=== PATIENT | male | born 1975 | race Caucasian/White ===

== ENCOUNTER 2024-03-18 14:33 | Outpatient (AMB) | payer OTHER, SELFPAY ==
--- NOTE | 2024-03-18 14:39 | A.OFFVIS_ITS ---
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 Patient reports that he has had left knee pain for many years now. He has been treated previously with [facility], they have given cortisone injections. Most recent injection was done at the end of november. He has done a home exercise program as as well as taping. He feels pain all the time, but it is worse with increased acitivty. He takes Celebrex for his pain and uses medicinal marijuana. He would like to discuss possible TKA. Hx of Menisectomy of the left knee & Arhtroscopy of the left knee to clear our OA. 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 He states he has had 2 arthroscopic surgeries and was told he has osteoarthritis. He has been treated at an outside institution with injections and comes in today continuing to complain of difficulty with daily activities. His primary problems include pain with kneeling and pain with stairs. 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 [facility] Medical History (Updated 03/19/24 @ 09:29 by Teodoro Barclay MD) Traumatic amputation of right index finger Surgical History (Updated 03/19/24 @ 09:29 by Teodoro Barclay MD) History of gastric bypass (~2003) Hx of cholecystectomy H/O left knee surgery Physical Exam Extrem Other: On exam he has a moderate valgus malalignment with 1+ instability of the left knee. Tenderness to palpation over the lateral compartment. He has 0-130 degrees of motion. No effusion. Office Procedures Joint Injection/Aspiration Joint Injection/Aspiration Details: Injected 1 mL of Decadron and 3 mL 1% lidocaine and 3 mL of 0.25% Marcaine. Site was prepped using aseptic technique. Patient tolerated the procedure well. Primary Site: left knee Approach Used: anterolateral Coding 99660 - Large joint Procedure code (CPT) selection complete Assessment & Plan Assessment & Plan (1) Osteoarthritis of left knee: Code(s): M17.12 - Unilateral primary osteoarthritis, left knee Category: Medical Plan: This is a 48-year-old gentleman with left knee osteoarthritis and valgus malalignment. I injected his left knee. If this is not sufficiently helpful I would recommend gel. I did discuss an unloading brace but he is hesitant to do this. (2) Morbid obesity: Code(s): E66.01 - Morbid (severe) obesity due to excess calories Category: Medical Plan: He has ongoing issues with moderate obesity. (3) History of gastric bypass: Onset Date: ~2003 Code(s): Z98.84 - Bariatric surgery status Category: Surgical Plan: History of gastric bypass 20 years ago. Coding Level of Care Code New Pt Level 4 (92603) Diagnoses Osteoarthritis of left knee M17.12 Morbid obesity E66.01 History of gastric bypass Z98.84 CPT Codes Coding - 79912 Large joint: 14332 - Large joint ([id number])
== END 2024-03-18 15:16 | disposition home or self-care (01) ==
PROVIDERS: PCP Nurse Practitioner Women's Health; Visit Provider Orthopaedic Surgery
DX: M17.12 Unilateral primary osteoarthritis, left knee (principal); E66.01 Morbid (severe) obesity due to excess calories; Z98.84 Bariatric surgery status
CPT/HCPCS: 20610; 99204

== ENCOUNTER → 2024-03-18 14:33 | Outpatient (BNVA) | payer OTHER, SELFPAY | PROVIDERS: PCP Nurse Practitioner Women's Health; Visit Provider Orthopaedic Surgery | DX: M17.12 Unilateral primary osteoarthritis, left knee (principal); E66.01 Morbid (severe) obesity due to excess calories; Z98.84 Bariatric surgery status | CPT/HCPCS: 20610; J0665; J1100 ==

== ENCOUNTER 2024-09-13 11:26 | Outpatient (AMB) | payer OTHER, SELFPAY ==
--- NOTE | 2024-09-13 11:29 | MHC.OFFVIS ---
Vital Signs 09/13/24 11:34 Height 5 ft 5 in Weight 250 lb BMI 41.6 Intake Visit Reasons: OV- Left knee pain, last inj 03/18/24 Intake Note: Aly is a 48 year old male who presents today for a follow up of left knee OA, last injection 03/18/24. Patient was last seen with Dr. Barclay and was given a cortisone injection which provided him with some relief until recently. He would like to discuss moving forward with gel injections. He has tried and failed PT and at home exercises. His pain is affecting his AODL. Finds little relief with Tylenol and celebrex. Allergies No Known Allergies Allergy (Unverified 09/13/24 11:35) HPI HPI OV- Left knee pain, last inj 03/18/24: Details: 49-year-old gentleman returns to the office today for follow-up left knee pain. He was seen by Dr. Barclay on 03/18/2024 for a left knee steroid injection which was successful up until recently. He continues to have discomfort with activities deep bending kneeling and squatting. He has also had gel injections in the past with significant relief. [facility] Medical History (Updated 03/19/24 @ 09:29 by Teodoro Barclay MD) Traumatic amputation of right index finger Surgical History History of gastric bypass (~2003) Hx of cholecystectomy H/O left knee surgery Review of Systems Const All systems reviewed & are unremarkable except as noted in HPI and below Physical Exam Vital Signs: BMI result Body Mass Index 41.6 Extrem Other: On exam he has a moderate valgus malalignment with 1+ instability of the left knee. Tenderness to palpation over the lateral compartment. He has 0-130 degrees of motion. No effusion. Office Procedures AMB Joint Injection/Aspiration Joint Injection/Aspiration Details: #1 euflexxa with cortisone Primary Site: left knee Prep: site was prepped using aseptic technique, ethochloride spray was applied and injection warnings given Injected: 80 mg of, DepoMedrol, 1% plain lidocaine and in the joint Approach Used: anterolateral Procedure: The patient tolerated the procedure well and there was some relief with the local anesthesia Coding 66819 - Glenohumeral/Tronchanteric Bursa/Intraarticular Procedure code (CPT) selection complete Assessment & Plan Assessment & Plan (1) Osteoarthritis of left knee: Code(s): M17.12 - Unilateral primary osteoarthritis, left knee Category: Medical Plan: We discussed options today, which include steroid injection. The patient did consent to move forward with left knee steroid and #1 euflexxa injection, which was tolerated well.? I recommended rest, ice and elevation and OTC antiinflammatories prn for discomfort. Patient will return in 1 week for Euflexxa 2. Left knee. Coding Level of Care Code Est Pt Level 3 (79117) Complex EM visit Add On G2211 Diagnoses Osteoarthritis of left knee M17.12 CPT Codes Coding - Joint 7: 18018 - Glenohumeral/Tronchanteric Bursa/Intraarticular ([id number])
[2024-09-13 11:34] VITALS: BMI 41.6
--- OUTSIDE RECORDS SUMMARY | 2024-09-13 13:11 | XMS_ITS | Patient Health Record ---
Author Organization [facility] [place] Address [address] [place] [address] Care Team Providers Care Planer Setter Name Role Phone Prateek Louise Primary Care Provider Umm Contreras Unavailable [phone] Reason For Referral No Information Medications Medication SIG (Take, Route, Frequency, Duration) Notes Start Date End Date Status Sertraline HCl Not-T aking Walking Boot/Pneumatic As directed Wear Daily for Until further notice 11/19/2016 Not-Taking busPIRone HCl Not-Ta ollie Citalopram Hydrobromide 40 MG Orally Not-Taking Percocet 10-325 MG Orally every 4 hrs prn Active Physical Therapy . . . 2-3x/week for 3- 4 weeks 10/24/2015 Not-Taking LORazepam 1 MG Orally PRN Activ e Gabapentin 400 MG Orally Three times a day Active Zoloft Active [facility] . . . for . 10/24/2015 Active [facility] as directed 02/11/2017 Not-Taking Social History Tobacco Use: Social History Observation Description Date Details (start date - stop date) Former Smoker NA - NA Tobacco Use/Smoking Question Answer Notes Are you a: former smoker When did you start smoking? 1989 When did you stop smoking? 2006 Additional Findings: Tobacco User Heavy cigarett e smoker (20-39 cigs/day) Additional Findings: Tobacco Non-User Current no n-smoker Alcohol Screen Question Answer Notes Did you have a drink containing alcohol in the p ast year? No Points 0 Interpretation Negative Tobacco use other than smoking: Question Answer Notes Are you an other tobacco user? No Section Notes: Problems No Known Problems Plan Of Treatment Pending Test Test Name Order Date Tc99 3 phase Bone Scan 04/23/2017 75502-Cemabfuv Plate 06/25/201718338,H5832-FDB TENDON SHEATH/LIGAMENT 0 09/26/201750948,G2655-RQR TENDON SHEATH/LIGAMENT 0 09/15/201402939,F6091-TQZ TENDON SHEATH/LIGAMENT 0 08/17/201556882,I6694-ZIV TENDON SHEATH/LIGAMENT 0 10/05/201537653,W6194-WKJ TENDON SHEATH/LIGAMENT 1 50,S0132-VMP TENDON SHEATH/LIGAMENT 0 09/03/201669162,U9516-HQX TENDON SHEATH/LIGAMENT 1 Next Appt Details Provider Name:Umm barry, 11/18/2024 08:30:00 AM, [address] [place] [address] Ivan, [place], [address], Insurance Providers Payer Name Payer Address Payer Phone Subscriber Number Group Number Insured Name Patient Relationship to Insured Coverage Start Date Coverage End Date [facility] [address] [facility] [place] [address] [phone] [id number] Aly Busby Self - patient is the insured Medical (General) History Medical History History ICD Code Anxiety Back,Hip,and Knee pain Chicken pox Surgical History Surgery Date(Month/Year) gall bladder gastric bypass kidney stones foot surgery LT 12/05/2016 Knee surgery LT 12/26/2016
== END 2024-09-13 13:47 | disposition home or self-care (01) ==
PROVIDERS: PCP Family Medicine; Visit Provider Physician Assistant
DX: M17.12 Unilateral primary osteoarthritis, left knee (principal)
CPT/HCPCS: 20610; 99213

== ENCOUNTER → 2024-09-13 11:26 | Outpatient (BNVA) | payer OTHER, SELFPAY | PROVIDERS: PCP Family Medicine; Visit Provider Physician Assistant | DX: M17.12 Unilateral primary osteoarthritis, left knee (principal) | CPT/HCPCS: 20610; J1010; J2003; J7323 ==

== ENCOUNTER 2024-09-20 13:55 | Outpatient (AMB) | payer OTHER, SELFPAY ==
--- NOTE | 2024-09-20 14:09 | A.OFFVIS_ITS ---
Vital Signs 09/20/24 14:20 Height 5 ft 5 in Weight 250 lb BMI 41.6 Intake Visit Reasons: INJ-LT knee Euflexxa #2 Intake Note: Aly is a 49 year old male who presents today for a left knee Euflexxa injection #2. Allergies No Known Allergies Allergy (Unverified 09/20/24 14:20) HPI HPI INJ-LT knee Euflexxa #2: Details: 49-year-old gentleman returns to the office today 2. Euflexxa left knee [facility] Medical History (Updated 03/19/24 @ 09:29 by Teodoro Barclay MD) Traumatic amputation of right index finger Surgical History History of gastric bypass (~2003) Hx of cholecystectomy H/O left knee surgery Physical Exam Vital Signs: BMI result Body Mass Index 41.6 Extrem Other: On exam he has a moderate valgus malalignment with 1+ instability of the left knee. Tenderness to palpation over the lateral compartment. He has 0-130 degrees of motion. No effusion. Office Procedures AMB Joint Injection/Aspiration Joint Injection/Aspiration Details: #2 euflexxa Primary Site: left knee Prep: site was prepped using aseptic technique, ethochloride spray was applied and injection warnings given Injected: in the joint Approach Used: anterolateral Procedure: The patient tolerated the procedure well Coding 28794 - Glenohumeral/Tronchanteric Bursa/Intraarticular Procedure code (CPT) selection complete Assessment & Plan Assessment & Plan (1) Osteoarthritis of left knee: Code(s): M17.12 - Unilateral primary osteoarthritis, left knee Category: Medical Plan: The patient did consent to move forward with left knee #2 euflexxa injection, which was tolerated well.? I recommended rest, ice and elevation and OTC antiinflammatories prn for discomfort. Patient will return in 1 week for Euflexxa 3. Left knee. Coding Level of Care Code Procedure Only Diagnoses Osteoarthritis of left knee M17.12 CPT Codes Coding - Joint 7: 45915 - Glenohumeral/Tronchanteric Bursa/Intraarticular ([id number])
[2024-09-20 14:20] VITALS: BMI 41.6
--- OUTSIDE RECORDS SUMMARY | 2024-09-20 16:32 | XMS_ITS | Encounter Summary ---
Author Organization [facility] Address [address] [place] [address] Care Team Providers Care Hydropress Operator Name Role Phone Dixon Gamino MD Primary Care Provider Lucina vailable Vic Palacio MD Primary Care Provider Unavail able Mona Carbajal MD Primary Care Provider [phone] Encounter Details Date Type Department Care Team Description 01/19/2014 Cashier Associate Report Medical Records [address] [place] [id number] Social History Tobacco Use Types Packs/Day Years Used Date Smoking Tobacco: Former Cigarettes Q uit: 07/21/2008 Smokeless Tobacco: Never Comments:2ppd prior Alcohol Use Standard Drinks/Week Comments Yes 0 (1 standard drink = 0.6 oz pur e alcohol) Sex Assigned at Date Recorded Not on file documented as of this encounter Plan of Treatment Not on file documented as of this encounter Visit Diagnoses Not on filedocumented in this encounter Care Teams Hydropress Operator Relationship Specialty Start Date End Date Dixon Gamino MD PCP - General 12/26/09 05/18/14 Vic Palacio MD PCP - General Internal Medicine 05/19/14 10/24/15 Mona Carbajal MD [address] [place] [address] [id number] PCP - General Internal Medicine 10/25/15 documented as of this encounter
--- OUTSIDE RECORDS SUMMARY | 2024-09-20 16:32 | XMS_ITS | Encounter Summary ---
Author Organization [facility] Address [address] [place] [address] Care Team Providers Care Nurse Licensed Practical Name Role Phone Dixon Gamino MD Primary Care Provider Lucina Vic Warren MD Primary Care Provider Unavail able Mona Carbajal MD Primary Care Provider [phone] Encounter Details Date Type Department Care Team Description 12/24/2012 Materials Inspector Report Medical Records [address] [place] [address] Levon Govea Social History Tobacco Use Types Packs/Day Years Used Date Smoking Tobacco: Former Cigarettes Q uit: 07/21/2008 Comments:2ppd prior Alcohol Use Standard Drinks/Week Comments Yes 0 (1 standard drink = 0.6 oz pur e alcohol) Sex Assigned at Date Recorded Not on file documented as of this encounter Plan of Treatment Not on file documented as of this encounter Visit Diagnoses Not on filedocumented in this encounter Care Teams Nurse Licensed Practical Relationship Specialty Start Date End Date Dixon Gamino MD PCP - General 12/26/09 05/18/14 Vic Palacio MD PCP - General Internal Medicine 05/19/14 10/24/15 Mona Carbajal MD [address] [place] [address] [id number] PCP - General Internal Medicine 10/25/15 documented as of this encounter
--- OUTSIDE RECORDS SUMMARY | 2024-09-20 16:32 | XMS_ITS | Encounter Summary ---
Author Organization [facility] Address [address] [place] [address] Care Team Providers Care Nipple Maker Name Role Phone Dixon Gamino MD Primary Care Provider Lucina Vic Warren MD Primary Care Provider Unavail Mona Canas MD Primary Care Provider [phone] Reason for Visit * Reason Comments E-prescribe Rx Request Encounter Details Date Type Department Care Team Description 03/12/2014 Refill Dermatology [address] [place] [address] Tien Davies MD E-prescribe Rx Request Social History Tobacco Use Types Packs/Day Years Used Date Smoking Tobacco: Former Cigarettes Q uit: 07/21/2008 Smokeless Tobacco: Never Comments:2ppd prior Alcohol Use Standard Drinks/Week Comments Yes 0 (1 standard drink = 0.6 oz pur e alcohol) Sex Assigned at Date Recorded Not on file documented as of this encounter Miscellaneous Notes * Telephone Encounter - Rachel Ohara - 03/15/2014 3:37 PM EDT Left message for pt to return my call * Telephone Encounter - Tien Davies MD - 03/15/2014 7:15 AM EDT Please call patient. I did call in one refill. However, if he is still requiring this medication, I should see him in follow up in the next 1-2 months. Please schedule. * Telephone Encounter - Summer Meghana - 03/14/2014 7:07 AM EDT Patient would like script to be: E-PRESCRIBED/FAXED TO PHARMACY (THE MEDICATION REQUESTED IS ON THE MED LIST ABOVE) All of the medications requested were on the CURRENT MEDS list Did you check the Pharmacy information above?: YES Patient wants: 30 -day supply Is this a mail order prescription request ? NO Patients current insurance carrier is: Payor: [employer] / Plan: PPO $10 [place] [id number] / ProductType: PPO Sef-yat-Nlezeaq documented in this encounter Plan of Treatment Not on file documented as of this encounter Visit Diagnoses Not on filedocumented in this encounter Care Teams Nipple Maker Relationship Specialty Start Date End Date Dixon Gamino MD PCP - General 12/26/09 05/18/14 Vic Palacio MD PCP - General Internal Medicine 05/19/14 10/24/15 Mona Carbajal MD [address] [place] [id number] PCP - General Internal Medicine 10/25/15 documented as of this encounter
--- OUTSIDE RECORDS SUMMARY | 2024-09-20 16:32 | XMS_ITS | Encounter Summary ---
Author Organization [facility] Address [address] [place] [address] Care Team Providers Care Cost Engineer Name Role Phone Vic Palacio MD Primary Care Provider Unavail able Mona Carbajal MD Primary Care Provider [phone] Encounter Details Date Type Department Care Team Description 07/07/2014 WIRE PREPARATION MACHINE TENDER/[employer] Report Medical Records [address] [place] [address] Abstract, Provider Social History Tobacco Use Types Packs/Day Years [...] on filedocumented in this encounter Care Teams Cost Engineer Relationship Specialty Start Date End Date Vic Palacio MD PCP - General Internal Medicine 05/19/14 10/24/15 Mona Carbajal MD [address] [place] [address] [id number] PCP - General Internal Medicine 10/25/15 documented as of this encounter
--- OUTSIDE RECORDS SUMMARY | 2024-09-20 16:32 | XMS_ITS | Encounter Summary ---
Author Organization [facility] Address [address] [place] [address] Care Team Providers Care Director Foundation Name Role Phone Dixon Gamino MD Primary Care Provider Lucina vailable Vic Palacio MD Primary Care Provider Unavail able Mona Carbajal MD Primary Care Provider Encounter Details Date Type Department Care Team Description 04/19/2014 Release of Information Medical Records [address] [place] [address] Abstract, Provider Social History Tobacco Use Types [...] on filedocumented in this encounter Care Teams Director Foundation Relationship Specialty Start Date End Date Dixon Gamino MD PCP - General 12/26/09 05/18/14 Vic Palacio MD PCP - General Internal Medicine 05/19/14 10/24/15 Mona Carbajal MD [address] [place], [place] [phone] PCP - General Internal Medicine 10/25/15 documented as of this encounter
--- OUTSIDE RECORDS SUMMARY | 2024-09-20 16:32 | XMS_ITS | Encounter Summary ---
Author Organization [facility] Address [address] [place] [address] Care Team Providers Care Mortgage Funder Name Role Phone Dixon Gaspar MD Primary Care Provider Lucina Vic Warren MD Primary Care Provider Unavail Mona Canas MD Primary Care Provider [phone] Reason for Visit * Reason Onset Date Comments Medication 01/11/2014 Encounter Details Date Type Department Care Team Description 01/11/2014 Telephone Adult Medicine [address] [address] Dixon Gaspar MD Medication Social History Tobacco Use Types Packs/Day Years Used Date Smoking Tobacco: Former Cigarettes Q uit: 07/21/2008 Smokeless Tobacco: Never Comments:2ppd prior Alcohol Use Standard Drinks/Week Comments Yes 0 (1 standard drink = 0.6 oz pur e alcohol) Sex Assigned at Date Recorded Not on file documented as of this encounter Miscellaneous Notes * Telephone Encounter - Bibiana BergPFunmilayoNFunmilayo - 01/14/2014 9:02 AM EDT Surgery torn meniscus Pt states surgeon was aware we had prescribed Starting therapy Fri Pt may will run out prior to due date Pt is not on a csc * Telephone Encounter - Bibiana BergPFunmilayoNFunmilayo - 01/12/2014 4:24 PM EDT Spoke with Ramy Shipman MD he should Not need extra for a long period Can take an extra for a short period Message left for patient to return my call. * Telephone Encounter - Ramy Shipman MD - 01/12/2014 4:06 PM EDT There is absolutely no reason to fill another prescription for Percocet. Percocet will work for theback as well as for the knee. Most likely the doctor did not realize the patient already has a supply of Percocet on hand * Telephone Encounter - Bibiana Myles L.P.N. - 01/12/2014 4:02 PM EDT His knee surgery is today , The script given to him was for his back per notes ( also seeing physiatry) Please review and advise. * Telephone Encounter - Ramy Shipman MD - 01/12/2014 12:50 PM EDT The prescription he got from Dr. Gaspar should last at least until January 27 I'm not sure when his surgery is but he should not need to fill this prescription until at least January 27 I don't think he has a contract anyway. Tell him the prescription is good for a least one month so he does not have to fill it right away hopefully he after he recovers from surgery his own no longer need narcotics * Telephone Encounter - Bibiana Myles L.P.N. - 01/12/2014 11:45 AM EDT SCRIPT PERCOCET 5/325 MG 1 EVERY 4-6 HRS [facility] Dixon MIRAMONTES 12/28/2013 #84 PERCOCET 5 325 MG 1 EVERY 8 HRS OK FOR [facility] TO FILL JUAN'S SCRIPT??? * Telephone Encounter - Zhane Monroe - 01/12/2014 10:46 AM EDT Pt calling on status of call, he needs to know if he can go to the pharmacy today with his script * Telephone Encounter - Shila Feliciano - 01/11/2014 3:47 PM EDT Patient received a script for percocet from Dr. Mcdowell, [facility], to take after his kneesurgery. He would like to know if he could take the script to his pharmacy since he gets them from Dr. Gaspar. Please call patient. documented in this encounter Plan of Treatment Not on file documented as of this encounter Visit Diagnoses Not on filedocumented in this encounter Care Teams Mortgage Funder Relationship Specialty Start Date End Date Dixon Gaspar MD PCP - General 12/26/09 05/18/14 Vic Palacio MD PCP - General Internal Medicine 05/19/14 10/24/15 Mona Carbajal MD [address] [place] [id number] PCP - General Internal Medicine 10/25/15 documented as of this encounter
--- OUTSIDE RECORDS SUMMARY | 2024-09-20 16:32 | XMS_ITS | Encounter Summary ---
Author Organization [facility] Address [address] [place] [address] Care Team Providers Care Financial Services Intern Name Role Phone Dixon Gamino MD Primary Care Provider Lucina vailable Vic Palacio MD Primary Care Provider Unavail able Mona Carbajal MD Primary Care Provider [phone] Encounter Details Date Type Department Care Team Description 12/08/2012 Release of Information Medical Records [address] [place] [address] Abstract, Provider Social History Tobacco Use Types [...] on filedocumented in this encounter Care Teams Financial Services Intern Relationship Specialty Start Date End Date Dixon Gamino MD PCP - General 12/26/09 05/18/14 Vic Palacio MD PCP - General Internal Medicine 05/19/14 10/24/15 Mona Carbajal MD [address] [place] [phone] PCP - General Internal Medicine 10/25/15 documented as of this encounter
--- OUTSIDE RECORDS SUMMARY | 2024-09-20 16:32 | XMS_ITS | Encounter Summary ---
Author Organization [facility] Address [address] [place] [address] Care Team Providers Care Joint Cutter Machine Name Role Phone Vic Palacio MD Primary Care Provider Unavail able Mona Carbajal MD Primary Care Provider [phone] Encounter Details Date Type Department Care Team Description 08/29/2014 MICROCHIP SPECIALIST/[employer] Report Medical Records [address] [place] [address] Abstract, Provider Social History Tobacco Use Types [...] on filedocumented in this encounter Care Teams Joint Cutter Machine Relationship Specialty Start Date End Date Vic Palacio MD PCP - General Internal Medicine 05/19/14 10/24/15 Mona Carbajal MD [address] [place] [address] [id number] PCP - General Internal Medicine 10/25/15 documented as of this encounter
--- OUTSIDE RECORDS SUMMARY | 2024-09-20 16:32 | XMS_ITS | Encounter Summary ---
Author Organization [facility] Address [address] [place] [address] Care Team Providers Care Rubber Press Tender Name Role Phone Dixon Gamino MD Primary Care Provider Lucina vaVic Flores MD Primary Care Provider Unavail able Mona Carbajal MD Primary Care Provider [phone] Encounter Details Date Type Department Care Team Description 01/01/2013 Onion Topper Report Medical Records [address] [place] [address] Isaac Tobar MD Social History Tobacco Use Types Packs/Day Years [...] on filedocumented in this encounter Care Teams Rubber Press Tender Relationship Specialty Start Date End Date Dixon Gamino MD PCP - General 12/26/09 05/18/14 Vic Palacio MD PCP - General Internal Medicine 05/19/14 10/24/15 Mona Carbajal MD [address] [place] [phone] PCP - General Internal Medicine 10/25/15 documented as of this encounter
--- OUTSIDE RECORDS SUMMARY | 2024-09-20 16:32 | XMS_ITS | Encounter Summary ---
Author Organization [facility] Address [address] [place] [address] Care Team Providers Care Supply Chain Assistant Name Role Phone Dixon Gamino MD Primary Care Provider Lucina vailable Vic Palacio MD Primary Care Provider Unavail able Mona Carbajal MD Primary Care Provider [phone] Encounter Details Date Type Department Care Team Description 02/09/2014 Shag Truck Driver Report Medical Records [address] [place] [address] Kaleigh Jaramillo PA-C Social History Tobacco Use Types Packs/Day Years [...] on filedocumented in this encounter Care Teams Supply Chain Assistant Relationship Specialty Start Date End Date Dixon Gamino MD PCP - General 12/26/09 05/18/14 Vic Palacio MD PCP - General Internal Medicine 05/19/14 10/24/15 Mona Carbajal MD [address] [place] [address] PCP - General Internal Medicine 10/25/15 documented as of this encounter
--- OUTSIDE RECORDS SUMMARY | 2024-09-20 16:32 | XMS_ITS | Encounter Summary ---
Author Organization [facility] Address [address] [place] [address] Care Team Providers Care Supervising Deputy Name Role Phone Dixon Gamino MD Primary Care Provider Lucina vailable Vic Palacio MD Primary Care Provider Unavail able Mona Carbajal MD Primary Care Provider [phone] Encounter Details Date Type Department Care Team Description 06/16/2013 Walk In Clinic Visit Medical Records [address] [place] [address] Be Hendrickson DO Social History Tobacco Use Types Packs/Day Years [...] on filedocumented in this encounter Care Teams Supervising Deputy Relationship Specialty Start Date End Date Dixon Gamino MD PCP - General 12/26/09 05/18/14 Vic Palacio MD PCP - General Internal Medicine 05/19/14 10/24/15 Mona Carbajal MD [address] [place] [address] PCP - General Internal Medicine 10/25/15 documented as of this encounter
== END 2024-09-20 14:33 | disposition home or self-care (01) ==
PROVIDERS: PCP Family Medicine; Visit Provider Physician Assistant
DX: M17.12 Unilateral primary osteoarthritis, left knee (principal)
CPT/HCPCS: 20610

== ENCOUNTER → 2024-09-20 13:55 | Outpatient (BNVA) | payer OTHER, SELFPAY | PROVIDERS: PCP Family Medicine; Visit Provider Physician Assistant | DX: M17.12 Unilateral primary osteoarthritis, left knee (principal) | CPT/HCPCS: 20610; J7323 ==

== ENCOUNTER 2024-09-27 13:58 | Outpatient (AMB) | payer OTHER, SELFPAY ==
--- NOTE | 2024-09-27 14:05 | MHC.OFFVIS ---
Vital Signs 09/27/24 14:11 Height 5 ft 5 in Weight 250 lb BMI 41.6 Intake Visit Reasons: INJ- LT knee Euflexxa #3 Intake Note: Aly is a 49 year old male who presents today for a left knee Euflexxa injection #3. Allergies No Known Allergies Allergy (Unverified 09/27/24 14:11) HPI HPI INJ- LT knee Euflexxa #3: Details: 49-year-old gentleman returns to the office today #3 Euflexxa left knee [facility] Medical History (Updated 03/19/24 @ 09:29 by Teodoro Barclay MD) Traumatic amputation of right index finger Surgical History History of gastric bypass (~2003) Hx of cholecystectomy H/O left knee surgery Review of Systems Const All systems reviewed & are unremarkable except as noted in HPI and below Physical Exam Vital Signs: BMI result Body Mass Index 41.6 Extrem Other: On exam he has a moderate valgus malalignment with 1+ instability of the left knee. Tenderness to palpation over the lateral compartment. He has 0-130 degrees of motion. No effusion. Office Procedures AMB Joint Injection/Aspiration Joint Injection/Aspiration Details: # 3 euflexxa Primary Site: left knee Prep: site was prepped using aseptic technique, ethochloride spray was applied and injection warnings given Injected: in the joint Approach Used: anterolateral Procedure: The patient tolerated the procedure well Coding 24969 - Glenohumeral/Tronchanteric Bursa/Intraarticular Procedure code (CPT) selection complete Assessment & Plan Assessment & Plan (1) Osteoarthritis of left knee: Code(s): M17.12 - Unilateral primary osteoarthritis, left knee Category: Medical Plan: The patient did consent to move forward with left knee #3 euflexxa injection, which was tolerated well.? I recommended rest, ice and elevation and OTC antiinflammatories prn for discomfort. I explained to the patient over the next 6-8 weeks he should noticed improvement in his symptoms. If symptoms persist or worsen he will contact our office otherwise follow up as needed. Coding Level of Care Code Procedure Only Diagnoses Osteoarthritis of left knee M17.12 CPT Codes Coding - Joint 7: 48245 - Glenohumeral/Tronchanteric Bursa/Intraarticular ([id number])
[2024-09-27 14:11] VITALS: BMI 41.6
--- OUTSIDE RECORDS SUMMARY | 2024-09-27 15:52 | XMS_ITS | Encounter Summary ---
Author Organization [facility] Address [address] [place] [address] Care Team Providers Care Farm Worker Name Role Phone Dixon Gamino MD Primary Care Provider Lucina vailable Vic Palacio MD Primary Care Provider Unavail able oMna Carbajal MD Primary Care Provider Encounter Details Date Type Department Care Team Description 03/17/2014 Catcher Helper Report Medical Records [address] [place] [id number] Social History Tobacco Use Types Packs/Day Years [...] on filedocumented in this encounter Care Teams Farm Worker Relationship Specialty Start Date End Date Dixon Gamino MD PCP - General 12/26/09 05/18/14 Vic Palacio MD PCP - General Internal Medicine 05/19/14 10/24/15 Mona Carbajal MD [address] [place] [address] [id number] PCP - General Internal Medicine 10/25/15 documented as of this encounter
--- OUTSIDE RECORDS SUMMARY | 2024-09-27 15:52 | XMS_ITS | Encounter Summary ---
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
--- OUTSIDE RECORDS SUMMARY | 2024-09-27 15:52 | XMS_ITS | Encounter Summary ---
Author Organization [facility] Address [address] [place] [address] Care Team Providers Care Experimental Flight Test Mechanic Name Role Phone Dixon Gamino MD Primary Care Provider Lucina vailable Vic Palacio MD Primary Care Provider Unavail able Mona Carbajal MD Primary Care Provider [phone] Encounter Details Date Type Department Care Team Description 04/26/2014 Fiber Optics Technician Report Medical Records [address] [place] [address] Iris Art Social History Tobacco Use Types Packs/Day Years [...] on filedocumented in this encounter Care Teams Experimental Flight Test Mechanic Relationship Specialty Start Date End Date Dixon Gamino MD PCP - General 12/26/09 05/18/14 Vic Palacio MD PCP - General Internal Medicine 05/19/14 10/24/15 Mona Carbajal MD [address] [place], [place] [id number] PCP - General Internal Medicine 10/25/15 documented as of this encounter
--- OUTSIDE RECORDS SUMMARY | 2024-09-27 15:52 | XMS_ITS | Encounter Summary ---
Author Organization [facility] Address [address] [place] [address] Care Team Providers Care Cable Rigger Name Role Phone Dixon Gaspar MD Primary Care Provider Lucina Vic Warren MD Primary Care Provider Unavail Mona Canas MD Primary Care Provider [phone] Reason for Visit * Reason Onset Date Comments medication problems 02/24/2014 Call From Pharmacy 02/24/2014 Encounter Details Date Type Department Care Team Description 02/24/2014 Telephone Adult Medicine [address] [address] Dixon Gaspar MD medication problems; Call From Pharmacy Social History Tobacco Use Types Packs/Day Years Used Date Smoking Tobacco: Former Cigarettes Q uit: 07/21/2008 Smokeless Tobacco: Never Comments:2ppd prior Alcohol Use Standard Drinks/Week Comments Yes 0 (1 standard drink = 0.6 oz pur e alcohol) Sex Assigned at Date Recorded Not on file documented as of this encounter Miscellaneous Notes * Telephone Encounter - Bibiana BergPFunmilayoNFunmilayo - 02/24/2014 5:[address] these in the problem list * Telephone Encounter - Dixon Gaspar MD - 02/24/2014 5:04 PM EDT Diagnosis is lumbar radiculitis * Telephone Encounter - Bibiana BergPFunmilayoNFunmilayo - 02/24/2014 5:00 PM EDT Diagnosis 724.02 (ICD-9-CM) - Spinal stenosis, lumbar 724.4 (ICD-9-CM) - Radiculitis, lumbosacral Notified pharmacy Please place in Dx area * Telephone Encounter - Samira Lucas - 02/24/2014 4:56 PM EDT What is the name of the medication patient is having a problem with?: oxycodone- acetaminophen (PERCOCET) 5-325 MG per tablet What is the problem?: they need a diagnois code for this Is the patient calling about the problem? NO If the patient is not the caller who is? Crystal Is this a NEW medication?: NO How long has the patient been taking this medication? Who prescribed this medication for the patient? Dixon Gaspar Who is patients PCP?: Dixon Gaspar [facility] / Plan: PPO $10 [id number] / Product Type: PPO [id number] documented in this encounter Plan of Treatment Not on file documented as of this encounter Visit Diagnoses Not on filedocumented in this encounter Care Teams Cable Rigger Relationship Specialty Start Date End Date Dixon Gaspar MD PCP - General 12/26/09 05/18/14 Vic Palacio MD PCP - General Internal Medicine 05/19/14 10/24/15 Mona Carbajal MD [address] [place] [address] PCP - General Internal Medicine 10/25/15 documented as of this encounter
--- OUTSIDE RECORDS SUMMARY | 2024-09-27 15:52 | XMS_ITS | Encounter Summary ---
Author Organization [facility] Address [address] [place] [address] Care Team Providers Care Full Service Supervisor Name Role Phone Dixon Gamino MD Primary Care Provider Lucina vailable Vic Palacio MD Primary Care Provider Unavail able Mona Carbajal MD Primary Care Provider [phone] Encounter Details Date Type Department Care Team Description 02/24/2014 Controlled Substance Contract with Plan Medical Records [address] [place] [id number] Abstract, Provider Social History Tobacco Use Types [...] on filedocumented in this encounter Care Teams Full Service Supervisor Relationship Specialty Start Date End Date Dixon Gamino MD PCP - General 12/26/09 05/18/14 Vic Palacio MD PCP - General Internal Medicine 05/19/14 10/24/15 Mona Carbajal MD [address] [place], [place] [phone] PCP - General Internal Medicine 10/25/15 documented as of this encounter
--- OUTSIDE RECORDS SUMMARY | 2024-09-27 15:52 | XMS_ITS | Encounter Summary ---
Author Organization [facility] Address [address] [place] [address] Care Team Providers Care Hydraulic Assembler Name Role Phone Dixon Gamino MD Primary Care Provider Lucina vailable Vic Palacio MD Primary Care Provider Unavail able Mona Carbajal MD Primary Care Provider [phone] Encounter Details Date Type Department Care Team Description 12/29/2009 Release of Information Medical Records [address] [place] [address] Abstract, Provider Social History Tobacco Use Types Packs/Day Years Used Date Smoking Tobacco: Former Cigarettes Q uit: 07/21/2008 Alcohol Use Standard Drinks/Week Comments Not Asked 0 (1 standard drink = 0.6 oz pur e alcohol) Sex Assigned at Date Recorded Not on file documented as of this encounter Plan of Treatment Not on file documented as of this encounter Visit Diagnoses Not on filedocumented in this encounter Care Teams Hydraulic Assembler Relationship Specialty Start Date End Date Dixon Gamino MD PCP - General 12/26/09 05/18/14 Vic Palacio MD PCP - General Internal Medicine 05/19/14 10/24/15 Mona Carbajal MD [address] [place] [address] PCP - General Internal Medicine 10/25/15 documented as of this encounter
--- OUTSIDE RECORDS SUMMARY | 2024-09-27 15:52 | XMS_ITS | Encounter Summary ---
Author Organization [facility] Address [address] [place] [address] Care Team Providers Care Logistics Tech Name Role Phone Dixon Gamino MD Primary Care Provider Lucina vailable Vic Palacio MD Primary Care Provider Unavail able Mona Carbajal MD Primary Care Provider [phone] Encounter Details Date Type Department Care Team Description 01/19/2014 Hardware Installer Report Medical Records [address] [place] [address] Social History Tobacco Use Types Packs/Day Years [...] on filedocumented in this encounter Care Teams Logistics Tech Relationship Specialty Start Date End Date Dixon Gamino MD PCP - General 12/26/09 05/18/14 Vic Palacio MD PCP - General Internal Medicine 05/19/14 10/24/15 Mona Carbajal MD [address] [place] [address] [id number] PCP - General Internal Medicine 10/25/15 documented as of this encounter
--- OUTSIDE RECORDS SUMMARY | 2024-09-27 15:52 | XMS_ITS | Patient Health Record ---
Author Organization [facility] [place] Address [address] [facility] [address] Care Team Providers Care Patient Registration Clerk Name Role Phone Prateek Louise Primary Care Provider Umm Contreras Unavailable [phone] Reason For Referral No Information Medications Medication [...] Date Tc99 3 phase Bone Scan 04/23/2017 54739-Kmikesgs Plate 06/25/201787696,[id number] TENDON SHEATH/LIGAMENT 0 09/26/201718527,[id number] TENDON SHEATH/LIGAMENT 0 09/15/[id number],[id number] TENDON SHEATH/LIGAMENT 0 08/17/201503693,[id number] TENDON SHEATH/LIGAMENT 0 10/05/201547248,[id number] TENDON SHEATH/LIGAMENT 1 50,[id number] TENDON SHEATH/LIGAMENT 0 09/03/[id number] TENDON SHEATH/LIGAMENT 1 Next Appt Details Provider Name:Umm barry, 11/18/2024 08:30:00 AM, [address] [place] [address] [place], [place], [address], Insurance Providers Payer Name Payer Address Payer Phone Subscriber Number Group Number Insured Name Patient Relationship to Insured Coverage Start Date Coverage End Date [facility] [address] [place] [address] [phone] [id number] Aly Busby Self - patient is the insured Medical (General) History Medical History History ICD Code Anxiety Back,Hip,and Knee pain Chicken pox Surgical History Surgery Date(Month/Year) gall bladder gastric bypass kidney stones foot surgery LT 12/05/2016 Knee surgery LT 12/26/2016
--- OUTSIDE RECORDS SUMMARY | 2024-09-27 15:52 | XMS_ITS | Encounter Summary ---
Author Organization [facility] Address [address] [place] [address] Care Team Providers Care Airplane Woodworker Name Role Phone Dixon Gamino MD Primary Care Provider Lucina Vic Warren MD Primary Care Provider Unavail Mona Canas MD Primary Care Provider [phone] Reason for Visit * Reason Comments E-prescribe Rx Request Encounter Details Date Type Department Care Team Description 03/12/2014 Refill Dermatology [address] [place] [address] Tien Davies MD E-prescribe Rx Request Social [...] Payor: ELLEN/NATALIA POS / Plan: PPO $10 [employer] [id number] / ProductType: PPO [id number] documented in this encounter Plan of Treatment Not on file documented as of this encounter Visit Diagnoses Not on filedocumented in this encounter Care Teams Airplane Woodworker Relationship Specialty Start Date End Date Dixon Gamino MD PCP - General 12/26/09 05/18/14 Vic Palacio MD PCP - General Internal Medicine 05/19/14 10/24/15 Mona Carbajal MD [address] [place] [id number] PCP - General Internal Medicine 10/25/15 documented as of this encounter
--- OUTSIDE RECORDS SUMMARY | 2024-09-27 15:52 | XMS_ITS | Encounter Summary ---
Author Organization [facility] Address [address] [place] [address] Care Team Providers Care Geophysical Prospecting Surveyor Name Role Phone Dixon Gamino MD Primary Care Provider Lucina Vic Warren MD Primary Care Provider Unavail Mona Canas MD Primary Care Provider [phone] Reason for Referral * Specialist (Routine) - Authorized/Booked Specialty Diagnoses / Procedures Referred By Bre hogue Referred To Contact Neurosurgery Diagnoses Spinal stenosis, lumbar Radiculitis, lumbosacral Procedures REFERRAL TO NEUROSURGERY Andres Lyons DO [address] [address] External Neuro Surg Referral ID Status Reason Start Date Expiration Date V isits Requested Visits Authorized SEE REVIEW 02/28/14 Authorized/ Booked 02/23/2014 1 1 Reason for Visit * Reason Onset Date Comments Provider Call Back 02/22/2014 Encounter Details Date Type Department Care Team Description 02/22/2014 Telephone Physiatry - [place] [address] [place] [address] [id number] Andres Lyons DO Provider Call Back Social History Tobacco Use Types Packs/Day Years Used Date Smoking Tobacco: Former Cigarettes Q uit: 07/21/2008 Smokeless Tobacco: Never Comments:2ppd prior Alcohol Use Standard Drinks/Week Comments Yes 0 (1 standard drink = 0.6 oz pur e alcohol) Sex Assigned at Date Recorded Not on file documented as of this encounter Miscellaneous Notes * Telephone Encounter - Bibiana Myles L.P.N. - 02/24/2014 2:39 PM EDT Per Dixon donohue to do csc with pod * Telephone Encounter - Bibiana BergPFunmilayoNFunmilayo - 02/24/2014 2:29 PM EDT Pt will be picking up script today do you just want me to do the csc at that time ? And uds? * Telephone Encounter - Dixon Gamino MD - 02/24/2014 7:58 AM EDT He will need an appointment for control substance contract either with myself or Oz * Telephone Encounter - Karen Olivo M.A. - 02/23/2014 2:48 PM EDT Patient is aware. * Telephone Encounter - Andres Lyons - 02/23/2014 12:42 PM EDT Based on information that he provided, I assume that changing his Percocet from 3 times a day to 4 times a day will suffice and will allow him to take next her pill every now and then for severe pain. I will recommend to Dr. Gamino to make the change, however it will be up to him if he is willingto do it. I highly doubt surgeon will be very eager to operate, so patient may need to stay on pain medication for a while and contract will need to be signed. His refill date is coming up later thisweek. * Telephone Encounter - Karen Olivo M.A. - 02/23/2014 12:01 PM EDT Yes he said 2 times and it does work much better but then his medication will run out and he will not be able to get it filled so he only takes it by the directions. * Telephone Encounter - Andres Lyons - 02/23/2014 11:16 AM EDT Has he ever tried taking two pills at the time? Referral to neurosurgery was placed. * Telephone Encounter - Karen Olivo M.A. - 02/23/2014 8:49 AM EDT Patient states that he would like to have a surgical consult and would like to know if you can increase or change his medications in the meantime. Currently he is taking Percocet 5-325 1 every eight hours and he said most of the time this is working But at times he feels little relief with 1 tab. * Telephone Encounter - Andres Lyons - 02/22/2014 5:08 PM EDT Unfortunately, he has pretty significant spinal canal stenosis. If he had any pain relief initiallyafter the procedure, I would recommend doing another injection. However, if pain relief was never obtained, another procedure would not be recommended. May consider surgical referral. And of course his other option will be ongoing use of pain medications. * Telephone Encounter - Karen Olivo M.A. - 02/22/2014 2:58 PM EDT Patient states his lower back left side hurts worse than before the injection on 02/11/14, today he is hunched over and cant even stand straight without shooting pains going up back. Denies pain in legs, denies fever or incontinence. Would like to know what to do * Telephone Encounter - Lucy Trinidad - 02/22/2014 10:28 AM EDT Pt calling back with increased pain in lower back area, pt would like to know what to do? Please advise. documented in this encounter Plan of Treatment Scheduled Orders Name Type Priority Associated Diagnoses Orde r Schedule DRUG TESTING, CONFIRMATION Lab Routine Spinal stenosis, lumbar Radiculitis, lumbosacral Encounter for long-term (current) use of other medications Expected: 02/24/2014, Expires: 02/24/2015 documented as of this encounter Results * ASSAY, DIHYDROCODEINONE (02/24/2014 3:56 PM EDT) HYDROCODONE UR GCMS Negative . ng/mL 03/02/2014 8:42 AM EDT [employer] HYDROMORPHONE UR GCMS Negative . ng/mL 03/02/2014 8:42 AM EDT [facility] Comment: Performed at: ??[employer] [address] ??[id number] Cuff Setter Lockstitch: Arnav Herrera MD, Phone: ??[phone] 02/24/2014 3:56 PM EDT 02/24/2014 3:56 PM EDT Andres Lyons DO LAB Performing Organization Address City/[facility] Co de Phone Number [facility] * (ABNORMAL) OXYCODONE, URINE (02/24/2014 3:56 PM EDT) URINE OXYCODONE LEVEL POSITIVE( A) NEGATIVE 02/24/2014 5:31 PM EDT [facility] Comment: Semi-quantitative urine assay for screening purposes only. Unconfirmed screening results should not be used for non-medical purposes. ALTERNATE METHOD CONFIRMATION DONE UPON REQUEST ONLY 02/24/2014 3:56 PM EDT 02/24/2014 3:56 PM EDT Andres Lyons DO LAB Performing Organization Address City/[facility]/ZIP Co de Phone Number [facility] [address] [place] [address] * DRUG OF ABUSE SCREEN (02/24/2014 3:56 PM EDT) AMPHETAMINE, URINE NEGATIVE NEGATIVE 02/24/2014 5:29 PM EDT [facility] BARBITURATES, URINE NEGATIVE NEGATIVE 02/24/2014 5:29 PM EDT [facility] BENZODIAZEPINE , URINE NEGATIVE NEGATIVE 02/24/2014 5:29 PM EDT [facility] COCAINE, URINE NEGATIVE NEGATIVE 02/24/2014 5:29 PM EDT [facility] OPIATES, URINE NEGATIVE NEGATIVE 02/24/2014 5:29 PM EDT [facility] MARIJUANA(THC) , URINE NEGATIVE NEGATIVE 02/24/2014 5:29 PM EDT [facility] 02/24/2014 3:56 PM EDT 02/24/2014 3:56 PM EDT Andres Lyons DO LAB Performing Organization Address City/State/[facility] Co de Phone Number [facility] [address] [place] [address] documented in this encounter Visit Diagnoses Diagnosis Spinal stenosis, lumbar- Primary Spinal stenosis, lumbar region, without neurogenic claudication Radiculitis, lumbosacral Thoracic or lumbosacral neuritis or radiculitis, unspecified Encounter for long-term (current) use of other medications documented in this encounter Care Teams Geophysical Prospecting Surveyor Relationship Specialty Start Date End Date Dixon Gamino MD PCP - General 12/26/09 05/18/14 Vic Palacio MD PCP - General Internal Medicine 05/19/14 10/24/15 Mona Carbajal MD [address] [place] [id number] PCP - General Internal Medicine 10/25/15 documented as of this encounter
--- OUTSIDE RECORDS SUMMARY | 2024-09-27 15:52 | XMS_ITS | Encounter Summary ---
Author Organization [facility] Address [address] [place] [address] Care Team Providers Care Landscape Designer Name Role Phone Vic Palacio MD Primary Care Provider Unavail able Mona Carbajal MD Primary Care Provider [phone] Encounter Details Date Type Department Care Team Description 08/29/2014 COUNTY ENGINEER/[employer] Report Medical Records [address] [place] [address] Abstract, Provider Social History Tobacco Use Types [...] on filedocumented in this encounter Care Teams Landscape Designer Relationship Specialty Start Date End Date Vic Palacio MD PCP - General Internal Medicine 05/19/14 10/24/15 Mona Carbajal MD [address] [place] [address] [phone] PCP - General Internal Medicine 10/25/15 documented as of this encounter
--- OUTSIDE RECORDS SUMMARY | 2024-09-27 15:52 | XMS_ITS | Encounter Summary ---
Author Organization [facility] Address [address] [place] [address] Care Team Providers Care Lard Tub Washer Name Role Phone Dixon Gamino MD Primary Care Provider Lucina vailable Vic Palacio MD Primary Care Provider Unavail able Mona Carbajal MD Primary Care Provider Encounter Details Date Type Department Care Team Description 06/16/2013 Walk In Clinic Visit Medical Records [address] [place] [id number] Be Hendrickson DO Social History Tobacco Use [...] on filedocumented in this encounter Care Teams Lard Tub Washer Relationship Specialty Start Date End Date Dixon Gamino MD PCP - General 12/26/09 05/18/14 Vic Palacio MD PCP - General Internal Medicine 05/19/14 10/24/15 Mona Carbajal MD [address] [place] [phone] PCP - General Internal Medicine 10/25/15 documented as of this encounter
--- OUTSIDE RECORDS SUMMARY | 2024-09-27 15:53 | XMS_ITS | Encounter Summary ---
Author Organization [facility] Address [address] [place] [address] Care Team Providers Care Perishable Fruit Inspector Name Role Phone Vic Palacio MD Primary Care Provider Unavail able Mona Carbajal MD Primary Care Provider [phone] Encounter Details Date Type Department Care Team Description 10/24/2014 FOURDRINIER TENDER/[facility] Report Medical Records [address] [place] [address] Abstract, Provider Social History Tobacco Use Types [...] on filedocumented in this encounter Care Teams Perishable Fruit Inspector Relationship Specialty Start Date End Date Vic Palacio MD PCP - General Internal Medicine 05/19/14 10/24/15 Mona Carbajal MD [address] [place] [phone] PCP - General Internal Medicine 10/25/15 documented as of this encounter
--- OUTSIDE RECORDS SUMMARY | 2024-09-27 15:53 | XMS_ITS | Encounter Summary ---
Author Organization [facility] Address [address] [place] [address] Care Team Providers Care Liberal Arts And Humanities Chair Name Role Phone Dixon Gamino MD Primary Care Provider Lucina vaVic Flores MD Primary Care Provider Unavail able Mona Carbajal MD Primary Care Provider Encounter Details Date Type Department Care Team Description 01/01/2013 Support Group Manager Report Medical Records [address] [place] [id number] Isaac Tobar MD Social History Tobacco Use [...] on filedocumented in this encounter Care Teams Liberal Arts And Humanities Chair Relationship Specialty Start Date End Date Dixon Gamino MD PCP - General 12/26/09 05/18/14 Vic Palacio MD PCP - General Internal Medicine 05/19/14 10/24/15 Mona Carbajal MD [address] [place] [phone] PCP - General Internal Medicine 10/25/15 documented as of this encounter
== END 2024-09-27 15:55 | disposition home or self-care (01) ==
PROVIDERS: PCP Family Medicine; Visit Provider Physician Assistant
DX: M17.12 Unilateral primary osteoarthritis, left knee (principal)
CPT/HCPCS: 20610

== ENCOUNTER → 2024-09-27 13:58 | Outpatient (BNVA) | payer OTHER, SELFPAY | PROVIDERS: PCP Family Medicine; Visit Provider Physician Assistant | DX: M17.12 Unilateral primary osteoarthritis, left knee (principal) | CPT/HCPCS: 20610; J7323 ==